=== PATIENT | male | born 1950 | race Two or more races ===

== ENCOUNTER 2022-08-25 17:11 | Inpatient (IN) | payer SELFPAY ==
[~2022-08-25] VITALS: Ht 165.1 cm; Wt 41.4 kg
[2022-08-25] MEDS ORDERED: ONDANSETRON HCL 4MG/2ML INJ IV STA (17:32)
[2022-08-25] MEDS ORDERED: SODIUM CHLORIDE 0.9% 1,000 ML IV ONE (17:45)
[2022-08-25 17:55] LABS: EOSINOPHILS % 3.8 % (0.0-5.0); HEMATOCRIT. 30.5 % (42.0-52.0); HEMOGLOBIN. 10.1 g/dL (14.0-18.0); LYMPHOCYTES % 6.7 % (20.0-50.0); MEAN CORPUSCULAR HEMOGLOBIN 30.3 pg (28.0-32.0); MEAN CORPUSCULAR VOLUME 91.2 fL (80.0-94.0); MEAN PLATELET VOLUME 6.5 fl (7.4-10.4); MONOCYTES % 6.8 % (2.0-8.0); NEUTROPHILS % 81.7 % (40.0-76.0); PLATELET 471 x1000/uL (130-400); RED BLOOD CELL COUNT 3.34 mill/uL (4.7-6.1); RED CELL DISTRIBUTION WIDTH 13.9 % (11.6-14.6)
[2022-08-25 18:02] LABS: INR 1.1; PROTHROMBIN TIME 11.4 sec (9.6-11.0)
[2022-08-25 18:11] LABS: ETHANOL BLOOD < 10 mg/dL
[2022-08-25] MEDS ORDERED: IOHEXOL-300 100 ML BOTTLE ONE (18:41)
[2022-08-25 19:56] LABS: CHLORIDE 98 mEq/L (98-107)
[2022-08-25] MEDS ORDERED: CEFTRIAXONE 1 G PREMIX 50 ML IV ONE (21:30)
[2022-08-25] MEDS ORDERED: METRONIDAZOLE 500 MG PREMIX 100 ML IV ONE (21:30)
[2022-08-25 22:12] LABS: CLARITY URINE CLEAR (CLEAR); COLOR URINE YELLOW (YELLOW); KETONES URINE 1+ (NEGATIVE); LEUKOCYTE ESTERASE URINE NEGATIVE (NEGATIVE); NITRITE URINE NEGATIVE (NEGATIVE); OCCULT BLOOD URINE NEGATIVE (NEGATIVE); PROTEIN URINE 1+ (NEGATIVE); SPECIFIC GRAVITY URINE 1.077 (1.005-1.030)
[2022-08-26] MEDS ORDERED: MORPHINE SULFATE 2 MG/ML CPJ (NOT FOR IM USE) IV PRN (02:30)
[2022-08-26] MEDS ORDERED: NALOXONE HCL 0.4MG/ML VIAL IV PRN (08:30)
[2022-08-26 08:44] VITALS: BP 96/62
[2022-08-26] MEDS ORDERED: METR-167 MT (10:22)
[2022-08-26] MEDS ORDERED: LEVO-65 MT (10:22)
[2022-08-26] MEDS ORDERED: SODIUM CHLORIDE 0.9% 1,000 ML IV SCH (10:30)
[2022-08-26] MEDS ORDERED: ACETAMINOPHEN 325MG TABLET PO PRN (10:30)
[2022-08-26] MEDS ORDERED: ONDANSETRON HCL 4MG/2ML INJ IV PRN (10:30)
[2022-08-26] MEDS ORDERED: LEVOFLOXACIN 500MG PREMIX 100 ML IV SCH (11:00)
[2022-08-26] MEDS ORDERED: METRONIDAZOLE 500 MG PREMIX 100 ML IV SCH (11:30)
[2022-08-26 11:39] VITALS: BP 114/69
[2022-08-26] MEDS ORDERED: PNEUMOCOCCAL 23-VAL P-SAC VAC 0.5 ML IM ONE (11:45)
[2022-08-26] MEDS ORDERED: INFLUENZA VACCINE 05/PF 0.5 ML SYRINGE IM ONE (11:45)
[2022-08-26] MEDS ORDERED: VISCOUS LIDOCAINE 2% 15 ML UDC PO PRN (15:45)
[2022-08-26 16:00] VITALS: BP 108/46
[2022-08-26 18:01] VITALS: BP 114/69
[2022-08-26 20:00] VITALS: BP 112/47
== END 2022-08-26 19:45 | disposition home or self-care (01) | DRG 249 ==
LOC: ER 17:11 → EDBEDREQ 18:46 → MICUSO 18:46 → EDBD 18:46 → EDBEDREQTM 18:46 → EDBEDREQ 19:00 → 6EST 08-26 08:08
PROVIDERS: ADMIT Internal Medicine; ATTEND Internal Medicine
DX: K52.9 Noninfective gastroenteritis and colitis, unspecified (principal); I10 Essential (primary) hypertension; J44.9 Chronic obstructive pulmonary disease, unspecified
CPT/HCPCS: 36415; 71045; 74177; 80053; 80320; 81003; 83605; 84484; 85025; 87426; 92610; 93005; 99285; C1893; C9803; J0696; J1956; J2270; J2405; J3490; J7030; Q9967; G0480